=== PATIENT | male | born 1990 | race Caucasian/White ===

== ENCOUNTER 2017-10-17 18:38 | Emergency (ER) | payer OTHER ==
[~2017-10-17] VITALS: Ht 185.4 cm; Wt 74.8 kg
[~2017-10-17 18:38] MED LIST: AMOXICILLIN500 M1 PO; DIFLUCAN150 MG PO; DOXYCYCLINE 10100 MG PO; FLEXERIL PO; HYDROCODONE-AP1 EAC6 PO; IBUPROFEN 800800 M1 PO; MEDROLDOSEPACK PO; NAPROSYN375 MG PO; NOHOMEMEDICATIONS; NORCO 5-325 TA1 EAC1 PO; NORCO 5-325 TA1 EACH PO; TOBRAMYCIN SULFA5 M1 OP; TRAMADOL 50 MG50 MG PO; ZPAK PO
[2017-10-17] MEDS ORDERED: KEFLEX500 M1 PO (19:33)
[2017-10-17] MEDS ORDERED: TRAMADOL 50 MG50 MG PO (19:33)
[2017-10-17] MEDS ORDERED: BACTRIM DS TAB1 EACH PO (19:33)
[2017-10-17 20:01] VITALS: BP 130/89
== END 2017-10-17 20:02 | disposition home or self-care (01) ==
LOC: M.ERS 18:38
DX: S62.632B Displaced fracture of distal phalanx of right middle finger, initial encounter for open fracture (principal); F17.210 Nicotine dependence, cigarettes, uncomplicated; Z91.030 Bee allergy status; X58.XXXA Exposure to other specified factors, initial encounter; Y93.89 Activity, other specified; Y92.89 Other specified places as the place of occurrence of the external cause; Y99.8 Other external cause status

== ENCOUNTER 2019-11-11 18:53 | Emergency (ER) | payer OTHER ==
[~2019-11-11] VITALS: Ht 185.4 cm; Wt 74.8 kg
[~2019-11-11 18:53] MED LIST changes: +BACTRIM DS TAB1 EACH PO; +KEFLEX500 M1 PO
[2019-11-11 19:41] VITALS: BP 139/89
== END 2019-11-11 20:47 | disposition home or self-care (01) ==
LOC: M.ERS 18:53
DX: S61.012A Laceration without foreign body of left thumb without damage to nail, initial encounter (principal); F17.210 Nicotine dependence, cigarettes, uncomplicated; Z91.030 Bee allergy status; Z79.899 Other long term (current) drug therapy; W27.8XXA Contact with other nonpowered hand tool, initial encounter; Y93.89 Activity, other specified; Y92.89 Other specified places as the place of occurrence of the external cause; Y99.8 Other external cause status

== ENCOUNTER 2021-05-21 20:01 | Emergency (ER) | payer OTHER ==
[~2021-05-21] VITALS: Ht 185.4 cm; Wt 74.8 kg
[2021-05-21] MEDS ORDERED: AUGMENTIN 500-1 EACH PO (21:10)
[2021-05-21 21:11] VITALS: BP 117/69
== END 2021-05-21 21:12 | disposition home or self-care (01) ==
LOC: M.ERS 20:01
DX: S01.411A Laceration without foreign body of right cheek and temporomandibular area, initial encounter (principal); F17.210 Nicotine dependence, cigarettes, uncomplicated; Z91.030 Bee allergy status; W55.01XA Bitten by cat, initial encounter; Y93.89 Activity, other specified; Y92.89 Other specified places as the place of occurrence of the external cause; Y99.8 Other external cause status